=== PATIENT | female | born 1935 | race Caucasian/White ===

== ENCOUNTER → 2016-04-28 | Outpatient (CLI) | payer BC ==
[~2016-04-28] MED LIST: AMLO-110 PO; BIOTCAP2 PO; CARV6.252 PO; CHOL2000 PO; CLTP PO; GABA-112 PO; HYDR-3126 PO; IBAN150T7 PO; LEVO50TA6 PO; MULT-506 PO; NORT10CA PO; POLY335019 PO; PRD/1 PO; PRLSR20 PO; TRAM-10 PO
[2016-04-28 15:56] LABS: BASO % 0.4 %; BASO ABS # 0.04 K/uL (0-0.2); COMPLETE YES; EOS % 2.3 %; HEMATOCRIT 38.9 % (37-47); IG% 0.3 %; LYMPH % 11.5 %; LYMPH ABS # 1.19 K/uL (1.2-3.4); MEAN CELL VOLUME 90.7 fL (80-100); MEAN CORPUSCULAR HEMOGLOBIN 30.3 pg (25-34); MEAN CORPUSCULAR HGB CONC 33.4 g/dl (32-36); MEAN PLATELET VOLUME 10.8 fL (7.4-10.4); MONO % 5.2 %; NEUT % 80.3 %; PLATELET COUNT 391 K/uL (130-400); RED BLOOD COUNT 4.29 M/uL (4.2-5.4); WHITE BLOOD COUNT 10.32 K/uL (4.8-10.8)
[2016-04-28 17:53] LABS: BLOOD UREA NITROGEN 13 mg/dl (7-18); BUN/CREATININE RATIO 18.7 (10-20); CARBON DIOXIDE 30 mmol/L (21-32); CHLORIDE 98 mmol/L (98-107); CREATININE 0.72 mg/dl (0.60-1.20); GLUCOSE 150 mg/dl (70-99); POTASSIUM 3.9 mmol/L (3.5-5.1); SODIUM 137 mmol/L (136-145)
== END | disposition home or self-care (01) ==
LOC: C.LAB1850 14:43
PROVIDERS: ATTEND Internal Medicine
DX: E87.1 Hypo-osmolality and hyponatremia (principal); E03.9 Hypothyroidism, unspecified; R29.6 Repeated falls

== ENCOUNTER → 2016-10-03 | Outpatient (CLI) | payer BC ==
[2016-10-03 16:39] LABS: BASO % 0.8 %; BASO ABS # 0.08 K/uL (0-0.2); COMPLETE YES; EOS % 3.4 %; HEMATOCRIT 43.2 % (37-47); IG% 0.2 %; LYMPH % 15.2 %; LYMPH ABS # 1.46 K/uL (1.2-3.4); MEAN CORPUSCULAR HEMOGLOBIN 30.4 pg (25-34); MEAN CORPUSCULAR HGB CONC 33.8 g/dl (32-36); MEAN PLATELET VOLUME 11.5 fL (7.4-10.4); MONO % 5.8 %; NEUT % 74.6 %; PLATELET COUNT 316 K/uL (130-400)
[2016-10-03 17:04] LABS: ALT/SGPT 25 U/L (12-78); AST/SGOT 16 U/L (15-37); BLOOD UREA NITROGEN 13 mg/dl (7-18); CALCIUM 9.1 mg/dl (8.5-10.1); CARBON DIOXIDE 31 mmol/L (21-32); CHLORIDE 99 mmol/L (98-107); CREATININE 0.74 mg/dl (0.60-1.20); GLUCOSE 96 mg/dl (70-99); POTASSIUM 4.3 mmol/L (3.5-5.1); SODIUM 137 mmol/L (136-145)
[2016-10-03 17:23] LABS: ALKALINE PHOSPHATASE 72 U/L (45-117)
== END | disposition home or self-care (01) ==
LOC: C.LAB1850 15:25
PROVIDERS: ATTEND Internal Medicine
DX: L40.50 Arthropathic psoriasis, unspecified (principal); E55.9 Vitamin D deficiency, unspecified; E03.9 Hypothyroidism, unspecified

== ENCOUNTER → 2017-03-07 | Outpatient (CLI) | payer BC ==
[2017-03-07 17:10] LABS: BLOOD UREA NITROGEN 15 mg/dl (7-18); BUN/CREATININE RATIO 16.8 (10-20); CARBON DIOXIDE 33 mmol/L (21-32); CHLORIDE 100 mmol/L (98-107); CREATININE 0.87 mg/dl (0.60-1.20); GLUCOSE 109 mg/dl (70-99); MAGNESIUM 2.3 mg/dl (1.8-2.4); POTASSIUM 4.2 mmol/L (3.5-5.1); SODIUM 136 mmol/L (136-145)
== END | disposition home or self-care (01) ==
LOC: C.LAB1850 15:47
PROVIDERS: ATTEND Internal Medicine
DX: R25.2 Cramp and spasm (principal)

== ENCOUNTER 2017-04-20 22:29 | Observation (INO) | payer BC ==
[~2017-04-20] VITALS: Ht 152.4 cm; Wt 65.0 kg
--- NOTE | 2017-04-20 23:12 | EMERGENCY ROOM VISIT NOTE ---
History Report prepared by Macy: Donald Johnson Under the Supervision of: Dr. Castillo Sanderson M.D. First contact with patient: 23:02 Chief Complaint: CONFUSION Stated Complaint: DEHYDRATION/CONFUSED Nursing Triage Summary: Patient arrived ALS for evaluation of confusion. Patient was talking on the phone with one of her daughters and daughter noted patient to be having difficulty remembering things and seemed a bit confused. Daughter had family check on her and they gave her gatorade and salty chips. Patient has hx low sodium with similar symptoms. Patient also has hx vertigo and hypertension. Patient alert and oriented upon arrival to ED. History of Present Illness The patient is an 81 year old female with a history of hypertension and vertigo who presents to the Emergency Room via EMS with an episode of confusion this evening. Per the patient's daughters, the patient was called by one of her daughters, and the daughter noted that the patient was very disoriented and was mixing up words. The patient states that she was unable to remember common phone numbers, and she felt like she was losing her mind. Per the patient's daughters, the patient did not know who they were when they saw the patient prior to arrival this evening. The patient's episode of confusion lasted almost an hour, per the patient's daughters. The patient denies any vision difficulties , numbness in her arms or legs, cough, cold symptoms, headaches, rashes, abdominal pain, urinary symptoms, or recent falls. The patient was given Gatorade before coming here, but that was not noted to help. The patient states that she has a history of sodium issues. She notes no history of strokes of heart attacks. She is a non-smoker. Source of History: patient, family Onset: This evening Position: other (global - confusion) Quality: other (did not know common phone numbers) Timing: other (episode) Associated Symptoms: No headache, No cough (or cold symptoms), No abdominal pain, No urinary symptoms, No numbness Note: Associated symptoms: Denies vision difficulties. Review of Systems See HPI for pertinent positives & negatives. A total of 10 systems reviewed and were otherwise negative. Past Medical & Surgical Medical Problems: (1) Esophageal Reflux (2) Hypertension Nos (3) Hypothyroidism Nos (4) Lumbar Disc Displacement (5) Memory loss (6) Osteoporosis Nos (7) Rheumatoid Arthritis Surgical Problems: (1) History of back surgery (2) History of cholecystectomy Family History Cancer Social History Smoking Status: Never Smoker Alcohol Use: none Marital Status: Housing Status: lives alone Occupation Status: retired Current/Historical Medications Scheduled Aspirin (Aspirin 81), 81 MG PO DAILY B Complex W/ C (Super B With C), 1 CAP PO DAILY Biotin (Biotin 5000), 1 CAP PO QAM Calcium Carbonate-Vitamin D (Calcium 600+D), 1 TAB PO BID Carvedilol (Coreg), 6.25 MG PO BID Cholecalciferol (Vitamin D3), 1 CAP PO QAM Fiber (Fiber Select Gummies), PO package instruction Gabapentin (Neurontin), 100 MG PO BID Gabapentin (Neurontin), 2 TABS PO HS Ibandronate Sodium (Ibandronate Sodium), 150 MG PO MONTHLY Levothyroxine Sodium (Levothyroxine Sodium), 1 TAB PO QAM Multivitamin (Multivitamin), 1 TABLET PO QAM Nortriptyline Hcl (Pamelor), 10 MG PO HS Omeprazole (Prilosec), 20 MG PO BID Polyethylene Glycol 3350 (Miralax), 17 GM PO QAM Scheduled PRN Hydrochlorothiazide (Hydrochlorothiazide), 1 TAB PO DAILY PRN for swelling/wt gain Hydroxyzine Hcl (Atarax), 25 MG PO HS PRN for Itching Allergies Coded Allergies: Latex (Verified Allergy, Unknown, pt states got hives with disposable diapers, 04/21/17) states was told latex allergy Buspirone (Verified Adverse Reaction, Mild, DIZZINESS, NAUSEA, 04/21/17) Clarithromycin (Verified Adverse Reaction, Unknown, "GETS VERY SICK", ) Lisinopril (Verified Adverse Reaction, Unknown, Dizzy, 04/21/17) Physical Exam Vital Signs Date Time Temp Pulse Resp B/P (MAP) Pulse Ox O2 Delivery O2 Flow Rate FiO2 04/21/17 00:41 70 04/21/17 00:38 66 04/20/17 23:48 72 18 180/79 97 Room Air 04/20/17 22:53 75 04/20/17 22:40 99 Room Air 04/20/17 22:35 36.6 74 18 202/95 95 Room Air Physical Exam GENERAL: Patient is well appearing and in no acute distress. HEENT: No acute trauma, normocephalic atraumatic, mucous membranes moist, no nasal congestion, no scleral icterus. NECK: No stridor, no adenopathy, no meningismus, trachea is midline. LUNGS: No dyspnea. Clear to auscultation and equal bilaterally. No wheeze, no rhonchi. HEART: Regular rate and rhythm. No murmurs, rubs, gallops appreciated. ABDOMEN: Soft, nontender, bowel sounds positive, no masses appreciated, no peritonitis. BACK: No midline tenderness, no CVA tenderness EXTREMITIES: Normal motion all extremities, no cyanosis, no edema. NEUROLOGIC: Alert and oriented, no acute motor or sensory deficits, no focal weakness, cranial nerves grossly intact. SKIN: No rash, no jaundice, no diaphoresis. Medical Decision & Procedures ER Provider Diagnostic Interpretation: Radiology results and stated below per my review and radiologist interpretation: CT HEAD: Comparison is made to prior CT head on 06/10/2014. No acute intracranial abnormality identified. Increased chronic small vessel ischemic disease and cerebral volume loss. Artherosclerotic calcification in the intracranial vasculature. Radiologist: Craig Butler M.D. X ray results are stated below per my interpretation: Chest: 1 view: No infiltrate, no effusion, normal cardiac border. Similar to previous. Laboratory Results 04/20/17 23:00 Red Blood Count 4.27, Mean Corpuscular Volume 90.6, Mean Corpuscular Hemoglobin 30.0, Mean Corpuscular Hemoglobin Concent 33.1, Mean Platelet Volume 10.8, Neutrophils (%) (Auto) 68.3, Lymphocytes (%) (Auto) 17.0, Monocytes (%) (Auto) 8.8, Eosinophils (%) (Auto) 4.9, Basophils (%) (Auto) 0.7, Neutrophils # (Auto) 6.54, Lymphocytes # (Auto) 1.63, Monocytes # (Auto) 0.84, Eosinophils # (Auto) 0.47, Basophils # (Auto) 0.07 04/20/17 23:00 Test 04/20/17 23:00 04/20/17 23:25 White Blood Count 9.58 K/uL (4.8-10.8) Red Blood Count 4.27 M/uL (4.2-5.4) Hemoglobin 12.8 g/dL (12.0-16.0) Hematocrit 38.7 % (37-47) Mean Corpuscular Volume 90.6 fL (80-100) Mean Corpuscular Hemoglobin 30.0 pg (25-34) Mean Corpuscular Hemoglobin Concent 33.1 g/dl (32-36) Platelet Count 257 K/uL (130-400) Mean Platelet Volume 10.8 fL (7.4-10.4) Neutrophils (%) (Auto) 68.3 % Lymphocytes (%) (Auto) 17.0 % Monocytes (%) (Auto) 8.8 % Eosinophils (%) (Auto) 4.9 % Basophils (%) (Auto) 0.7 % Neutrophils # (Auto) 6.54 K/uL (1.4-6.5) Lymphocytes # (Auto) 1.63 K/uL (1.2-3.4) Monocytes # (Auto) 0.84 K/uL (0.11-0.59) Eosinophils # (Auto) 0.47 K/uL (0-0.5) Basophils # (Auto) 0.07 K/uL (0-0.2) RDW Standard Deviation 49.5 fL (36.4-46.3) RDW Coefficient of Variation 14.8 % (11.5-14.5) Immature Granulocyte % (Auto) 0.3 % Immature Granulocyte # (Auto) 0.03 K/uL (0.00-0.02) Prothrombin Time 11.0 SECONDS (9.0-12.0) Prothromb Time International Ratio 1.0 (0.9-1.1) Activated Partial Thromboplast Time 26.1 SECONDS (21.0-31.0) Partial Thromboplastin Ratio 1.0 Anion Gap 5.0 mmol/L (3-11) Est Creatinine Clear Calc Drug Dose 58.5 ml/min Estimated GFR () 96.1 Estimated GFR (Non- 82.9 BUN/Creatinine Ratio 16.2 (10-20) Calcium Level 7.6 mg/dl (8.5-10.1) Magnesium Level 2.0 mg/dl (1.8-2.4) Total Bilirubin 0.4 mg/dl (0.2-1) Direct Bilirubin < 0.1 mg/dl (0-0.2) Aspartate Amino Transf (AST/SGOT) 12 U/L (15-37) Alanine Aminotransferase (ALT/SGPT) 20 U/L (12-78) Alkaline Phosphatase 51 U/L (45-117) Troponin I < 0.015 ng/ml (0-0.045) Total Protein 6.7 gm/dl (6.4-8.2) Albumin 3.2 gm/dl (3.4-5.0) Thyroid Stimulating Hormone (TSH) 2.050 uIu/ml (0.300-4.500) Urine Color YELLOW Urine Appearance CLEAR (CLEAR) Urine pH 8.0 (4.5-7.5) Urine Specific [place] 1.009 (1.000-1.030) Urine Protein NEG (NEG) Urine Glucose (UA) NEG (NEG) Urine Ketones NEG (NEG) Urine Occult Blood NEG (NEG) Urine Nitrite NEG (NEG) Urine Bilirubin NEG (NEG) Urine Urobilinogen NEG (NEG) Urine Leukocyte Esterase TRACE (NEG) Urine WBC (Auto) 5-10 /hpf (0-5) Urine RBC (Auto) 0-4 /hpf (0-4) Urine Hyaline Casts (Auto) 0 /lpf (0-5) Urine Epithelial Cells (Auto) 10-20 /lpf (0-5) Urine Bacteria (Auto) NEG (NEG) Laboratory results as reviewed by me. ECG Indication: altered mental status Rate (beats per minute): 73 Rhythm: normal sinus Findings: no acute ischemic change, no ectopy, other (very poor baseline) ED Course 2305: The patient was evaluated in room A9B. A complete history and physical exam was performed. 0012: Upon reevaluation, the patient is resting comfortably. Discussed results and treatment plan with the patient. she verbalized understanding and agreement with the treatment plan. The patient will be evaluated for further management. 0031: I discussed the patient with Dr. Watson [place] [facility] [place] he will evaluate the patient for further treatment. Medical Decision Differential: Toxicological, Infectious, Stroke, SAH, Trauma, Electrolyte Abnormality, Hypoglycemia, Alcohol Intoxication, Drug Intoxication, Cardiac Abnormality, Sepsis, Meningitis/Encephalitis, Trauma, Excited Delirium, Serotonin Syndrome, Psychiatric, amongst other pathologies entertained. 81 yr old female with transient hour long episode of altered mental status with inability to remember locations/phone numbers and difficulty speaking with confusion. No neuro deficits and resolved after family had her drinking Gatorade. Completely benign exam now and in no distress. Moderate htn gradually improving. Labs, ekg, cxr, ct head negative. Will bring in as unclear etiology and may have been TIA. Head Trauma GCS Score: 15 Medication Reconcilliation Current Medication List: was personally reviewed by me Blood Pressure Screening Patient's blood pressure: Elevated blood pressure Monitored by hospitalist. Consults Time Called: 27 Consulting Physician: Dr. Walter TORRES director foundation Returned Call: [phone] I discussed the patient with Dr. Walter TORRES director foundation - he will evaluate the patient for further treatment. Impression Primary Impression: Altered mental status Scribe Attestation The scribe's documentation has been prepared under my direction and personally reviewed by me in its entirety. I confirm that the note above accurately reflects all work, treatment, procedures, and medical decision making performed by me. Departure Information Dispostion Being Evaluated By Hospitalist Referrals Hiram Mcfarland M.D. (PCP) Patient Instructions My [facility]
[2017-04-20 23:18] LABS: BASO % 0.7 %; BASO ABS # 0.07 K/uL (0-0.2); EOS % 4.9 %; EOS ABS # 0.47 K/uL (0-0.5); HEMATOCRIT 38.7 % (37-47); HEMOGLOBIN 12.8 g/dL (12.0-16.0); IG# 0.03 K/uL (0.00-0.02); LYMPH ABS # 1.63 K/uL (1.2-3.4); MEAN CELL VOLUME 90.6 fL (80-100); MEAN CORPUSCULAR HGB CONC 33.1 g/dl (32-36); MEAN PLATELET VOLUME 10.8 fL (7.4-10.4); MONO % 8.8 %; MONO ABS # 0.84 K/uL (0.11-0.59); NEUT % 68.3 %; NEUT ABS # 6.54 K/uL (1.4-6.5); PLATELET COUNT 257 K/uL (130-400); RED CELL DISTRIBUTION WIDTH CV 14.8 % (11.5-14.5); RED CELL DISTRIBUTION WIDTH SD 49.5 fL (36.4-46.3); WHITE BLOOD COUNT 9.58 K/uL (4.8-10.8)
[2017-04-20 23:40] LABS: ALBUMIN 3.2 gm/dl (3.4-5.0); ALT/SGPT 20 U/L (12-78); AST/SGOT 12 U/L (15-37); BLOOD UREA NITROGEN 10 mg/dl (7-18); CALCIUM 7.6 mg/dl (8.5-10.1); CARBON DIOXIDE 28 mmol/L (21-32); CREATININE 0.63 mg/dl (0.60-1.20); GLUCOSE 116 mg/dl (70-99); POTASSIUM 3.9 mmol/L (3.5-5.1); SODIUM 135 mmol/L (136-145)
[2017-04-20 23:44] LABS: PTT PATIENT 26.1 SECONDS (21.0-31.0)
[2017-04-20 23:45] LABS: ALKALINE PHOSPHATASE 51 U/L (45-117); TOTAL PROTEIN 6.7 gm/dl (6.4-8.2)
[2017-04-21] VITALS (8 sets, daily range): BP systolic 146–185; BP diastolic 73–79; PULSE 71–81; TEMP 36.6–36.7; O2SAT 92–96; Ht 152.4 cm; Wt 65.0 kg
--- NOTE | 2017-04-21 00:29 | History and Physical ---
History & Physical Date & Time of Service: Apr 21, 2017 at 00:22 Chief Complaint: Dehydration/Confused Primary Care Physician: Hiram Mcfarland M.D. History of Present Illness Source: patient, family 81 y/o F Hx RA, HTN, hypothyroid, lumbar stenosis, GERD. The pt presents following an acute episode of confusion which lasted for over one hour. She had spoken to her daughter on the phone and was said to exhibit difficulty forming sentences, memory impairment and disorientation. There was no reported slurring of speech. She denies any acute weakness, visual changes or loss of balance. Her symptoms have resolved at the time of evaluation. Past Medical/Surgical History 1) Rheumatoid arthritis 2) Hypothyroidism 3) HTN 4) GERD 5) Lumbar stenosis 6) Pubic ramus fracture 7) Altered mental status associated with hyponatremia Surgical: Back surgery Cholecystectomy Family History Cancer Social History Smoking Status: Never Smoker Marital Status: Housing status: lives alone Occupational Status: retired Immunizations History of Influenza Vaccine: Yes History of Tetanus Vaccine?: Yes History of Pneumococcal: Yes History of Hepatitis B Vaccine: No Multi-Drug Resistant Organisms History of MDRO: No Allergies Coded Allergies: Latex (Verified Allergy, Unknown, pt states got hives with disposable diapers, 04/21/17) states was told latex allergy Buspirone (Verified Adverse Reaction, Mild, DIZZINESS, NAUSEA, 04/21/17) Clarithromycin (Verified Adverse Reaction, Unknown, "GETS VERY SICK", ) Lisinopril (Verified Adverse Reaction, Unknown, Dizzy, 04/21/17) Home Medications Scheduled Aspirin (Aspirin 81), 81 MG PO DAILY B Complex W/ C (Super B With C), 1 CAP PO DAILY Biotin (Biotin 5000), 1 CAP PO QAM Calcium Carbonate-Vitamin D (Calcium 600+D), 1 TAB PO BID Carvedilol (Coreg), 6.25 MG PO BID Cholecalciferol (Vitamin D3), 1 CAP PO QAM Fiber (Fiber Select Gummies), PO package instruction Gabapentin (Neurontin), 100 MG PO BID Gabapentin (Neurontin), 2 TABS PO HS Ibandronate Sodium (Ibandronate Sodium), 150 MG PO MONTHLY Levothyroxine Sodium (Levothyroxine Sodium), 1 TAB PO QAM Multivitamin (Multivitamin), 1 TABLET PO QAM Nortriptyline Hcl (Pamelor), 10 MG PO HS Omeprazole (Prilosec), 20 MG PO BID Polyethylene Glycol 3350 (Miralax), 17 GM PO QAM Scheduled PRN Hydrochlorothiazide (Hydrochlorothiazide), 1 TAB PO DAILY PRN for swelling/wt gain Hydroxyzine Hcl (Atarax), 25 MG PO HS PRN for Itching Review of Systems Constitutional: No fever, No chills, No sweats Eyes: No worsening of vision ENT: No hearing loss, No nasal symptoms Respiratory: No cough, No wheezing Cardiovascular: No chest pain, No orthopnea, No PND Abdomen: No pain, No nausea, No vomiting Musculoskeletal: + joint pain (chronic back pain) Genitourinary - Female: No dysuria, No urinary frequency, No urinary urgency Neurologic: + memory loss, + problem reported (acute disorientation) Psychiatric: No depression symptoms Endocrine: No fatigue Hematologic / Lymphatic: No abnormal bleeding/bruising Integumentary: No rash Allergic / Immunologic: No environmental allergies Physical Exam Vital Signs Date Time Temp Pulse Resp B/P (MAP) Pulse Ox O2 Delivery O2 Flow Rate FiO2 04/20/17 23:48 72 18 180/79 97 Room Air 04/20/17 22:53 75 04/20/17 22:40 99 Room Air 04/20/17 22:35 36.6 74 18 202/95 95 Room Air General Appearance: WD/WN, no apparent distress Head: normocephalic Eyes: normal inspection ENT: normal ENT inspection, pharynx normal Neck: supple, no JVD Respiratory/Chest: chest non-tender, lungs clear, normal breath sounds Cardiovascular: regular rate, rhythm, no edema, no gallop Abdomen/GI: normal bowel sounds, non tender, soft Back: normal inspection, no CVA tenderness Extremities/Musculoskelatal: normal inspection, no calf tenderness 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, no motor/sensory deficits, alert, oriented x 3 Skin: normal color, warm/dry Diagnostics Laboratory Results Results Past 24 Hours Test 04/20/17 23:00 04/20/17 23:25 Range/Units White Blood Count 9.58 4.8-10.8 K/uL Red Blood Count 4.27 4.2-5.4 M/uL Hemoglobin 12.8 12.0-16.0 g/dL Hematocrit 38.7 37-47 % Mean Corpuscular Volume 90.6 80-100 fL Mean Corpuscular Hemoglobin 30.0 25-34 pg Mean Corpuscular Hemoglobin Concent 33.1 32-36 g/dl Platelet Count 257 130-400 K/uL Mean Platelet Volume 10.8 7.4-10.4 fL Neutrophils (%) (Auto) 68.3 % Lymphocytes (%) (Auto) 17.0 % Monocytes (%) (Auto) 8.8 % Eosinophils (%) (Auto) 4.9 % Basophils (%) (Auto) 0.7 % Neutrophils # (Auto) 6.54 1.4-6.5 K/uL Lymphocytes # (Auto) 1.63 1.2-3.4 K/uL Monocytes # (Auto) 0.84 0.11-0.59 K/uL Eosinophils # (Auto) 0.47 0-0.5 K/uL Basophils # (Auto) 0.07 0-0.2 K/uL RDW Standard Deviation 49.5 36.4-46.3 fL RDW Coefficient of Variation 14.8 11.5-14.5 % Immature Granulocyte % (Auto) 0.3 % Immature Granulocyte # (Auto) 0.03 0.00-0.02 K/uL Prothrombin Time 11.0 9.0-12.0 SECONDS Prothromb Time International Ratio 1.0 0.9-1.1 Activated Partial Thromboplast Time 26.1 21.0-31.0 SECONDS Partial Thromboplastin Ratio 1.0 Sodium Level 135 136-145 mmol/L Potassium Level 3.9 3.5-5.1 mmol/L Chloride Level 102 98-107 mmol/L Carbon Dioxide Level 28 21-32 mmol/L Anion Gap 5.0 3-11 mmol/L Blood Urea Nitrogen 10 7-18 mg/dl Creatinine 0.63 0.60-1.20 mg/dl Est Creatinine Clear Calc Drug Dose 58.5 ml/min Estimated GFR () 96.1 Estimated GFR (Non- 82.9 BUN/Creatinine Ratio 16.2 10-20 Random Glucose 116 70-99 mg/dl Calcium Level 7.6 8.5-10.1 mg/dl Magnesium Level 2.0 1.8-2.4 mg/dl Total Bilirubin 0.4 0.2-1 mg/dl Direct Bilirubin < 0.1 0-0.2 mg/dl Aspartate Amino Transf (AST/SGOT) 12 15-37 U/L Alanine Aminotransferase (ALT/SGPT) 20 12-78 U/L Alkaline Phosphatase 51 45-117 U/L Troponin I < 0.015 0-0.045 ng/ml Total Protein 6.7 6.4-8.2 gm/dl Albumin 3.2 3.4-5.0 gm/dl Urine Color YELLOW Urine Appearance CLEAR CLEAR Urine pH 8.0 4.5-7.5 Urine Specific [place] 1.009 1.000-1.030 Urine Protein NEG NEG Urine Glucose (UA) NEG NEG Urine Ketones NEG NEG Urine Occult Blood NEG NEG Urine Nitrite NEG NEG Urine Bilirubin NEG NEG Urine Urobilinogen NEG NEG Urine Leukocyte Esterase TRACE NEG Urine WBC (Auto) 5-10 0-5 /hpf Urine RBC (Auto) 0-4 0-4 /hpf Urine Hyaline Casts (Auto) 0 0-5 /lpf Urine Epithelial Cells (Auto) 10-20 0-5 /lpf Urine Bacteria (Auto) NEG NEG Impression Assessment and Plan 81 y/o F Hx RA, HTN, hypothyroid, lumbar stenosis, GERD. The pt presents following an acute episode of confusion which lasted for over one hour. She had spoken to her daughter on the phone and was said to exhibit difficulty forming sentences, memory impairment and disorientation. There was no reported slurring of speech. She denies any acute weakness, visual changes or loss of balance. Her symptoms have resolved at the time of evaluation. 1) Acute confusion and memory loss - this would be a somewhat unusual presentation for a TIA. She will be monitored on telemetry with neurochecks. Will will obtain an MRI/MRA and request input fro neurology. She will be placed on ASA and a Satin. We will hold HCTZ at present. 2) RA - controlled with 2mg prednisone daily which we will continue. 3) Hypothyroidism - Cont Synthroid - check TSH 4) GERD - cont PPi Full code - Heparin prophylaxis Total time for this admit including review of labs,meds, imaging - discussion with pt, family, ER attending - 35 min Level of Care Telemetry Resuscitation Status FULL RESUSCITATION VTE Prophylaxis Given or contraindicated: Unfractionated heparin SQ
[2017-04-21] MEDS ORDERED: hydrOXYzine HCL 25 MG TAB PO PRN (00:30)
[2017-04-21] MEDS ORDERED: TRAMADOL HCL 50 MG TAB PO PRN (00:30)
[2017-04-21] MEDS ORDERED: ASPI-435 PO (00:31)
[2017-04-21] MEDS ORDERED: HYDR12.55 PO (00:33)
[2017-04-21] MEDS ORDERED: CALC-342 PO (00:35)
[2017-04-21] MEDS ORDERED: B COCAP10 PO (00:36)
[2017-04-21] MEDS ORDERED: FIBE1CHW PO (00:37)
[2017-04-21] MEDS ORDERED: ACETAMINOPHEN 325 MG TAB PO PRN (01:00)
[2017-04-21] MEDS ORDERED: POLYETHYLENE (MIRALAX) 17 GM PACK PO PRN (01:00)
[2017-04-21] MEDS ORDERED: SODIUM CHLORIDE 0.9% 1000ML 1,000 ML IV SCH (01:00)
[2017-04-21] MEDS ORDERED: PHARMACIST DISCHARGE MED REC CONSULT PRN (01:00)
[2017-04-21] MEDS ORDERED: MAGNESIUM HYDROXIDE SUSP 30 ML UDC PO PRN (01:00)
[2017-04-21] MEDS ORDERED: ONDANSETRON INJ 2 MG/ML 2 ML VIAL IV PRN (01:00)
[2017-04-21] MEDS ORDERED: ALUMINUM/MAGNESIUM/SIMETH (MAALOX MAX) 30 ML UDC PO PRN (01:00)
[2017-04-21] MEDS ORDERED: IV FLUIDS COMPLETED PRN (01:00)
[2017-04-21] MEDS ORDERED: GADAVIST IV PRN (03:40)
[2017-04-21] MEDS ORDERED: LEVOTHYROXINE 50 MCG TAB PO SCH (06:00)
[2017-04-21] MEDS: HEPARIN SOD 5000 UNIT/0.5 ML CARP SQ SCH ×2 (06:00→14:00)
[2017-04-21 06:30] LABS: HEMOGLOBIN A1C 5.9 % (4.5-5.6)
--- NOTE | 2017-04-21 06:41 | DIAGNOSTIC IMAGING REPORT ---
HEAD WITHOUT CONTRAST (CT) CLINICAL HISTORY: 81 years-old Female with AMS. Acute altered mental status TECHNIQUE: Multiple axial CT images of the head were obtained without contrast. A dose lowering technique was utilized adhering to the principles of ALARA. CT DOSE: 537.48 mGy.cm COMPARISON: None available. FINDINGS: No acute intracranial hemorrhage, midline shift, intracranial mass, hydrocephalus, territorial ischemia or abnormal extra-axial collection. Moderate cerebral atrophy with ex vacuo ventriculomegaly. Moderate chronic microvascular ischemic changes. The calvarium is intact. The paranasal sinuses, mastoid air cells, and middle ear cavities are clear. IMPRESSION: No acute intracranial abnormality. The above report was generated using voice recognition software. It may contain grammatical, syntax or spelling errors. Electronically signed by: Hardeep Martínez M.D. 04/21/2017 6:40 AM Dictated Date/Time: 04/21/2017 6:38 AM
--- NOTE | 2017-04-21 06:43 | DIAGNOSTIC IMAGING REPORT ---
CHEST ONE VIEW PORTABLE CLINICAL HISTORY: 81 years-old Female presenting with AMS. TECHNIQUE: Portable upright AP view of the chest was obtained. COMPARISON: 11/16/2014. FINDINGS: Atherosclerosis of the aortic arch. Tortuosity of the descending thoracic aorta. Cardiac silhouette normal in size. Mildly prominent lung markings, unchanged. No focal infiltrate. No large effusion or pneumothorax. Osseous structures normal. Cholecystectomy clips may be present. IMPRESSION: 1. Prominent lung markings may imply underlying chronic lung disease. These findings are unchanged from prior exam. No superimposed focal infiltrate to suggest pneumonia. Electronically signed by: Isidro Merritt M.D. 04/21/2017 6:42 AM Dictated Date/Time: 04/21/2017 6:40 AM
--- NOTE | 2017-04-21 06:52 | DIAGNOSTIC IMAGING REPORT ---
MRA HEAD WITHOUT CONTRAST HISTORY: 81 years-old Female Stroke - Attention to [place] [facility] [place] acute strokelike symptoms COMPARISON: MRI brain and CT head of same day TECHNIQUE: MRA of the head was obtained without contrast utilizing 3-D [id number] sequencing with MIP reformats. FINDINGS: The imaged bilateral internal carotid, middle and anterior cerebral arteries are widely patent and within normal limits. The vertebral arteries also appear to be within normal limits and are patent. The bilateral posterior cerebral arteries are widely patent and within normal limits. No aneurysm, high-grade stenosis, dissection or proximal branch occlusion identified. Moderate cerebral atrophy with ex vacuo ventriculomegaly noted. IMPRESSION: Unremarkable MRA of the head without evidence of aneurysm, high-grade stenosis or proximal branch occlusion. The above report was generated using voice recognition software. It may contain grammatical, syntax or spelling errors. Electronically signed by: Hardeep Martínez M.D. 04/21/2017 6:51 AM Dictated Date/Time: 04/21/2017 6:47 AM
--- NOTE | 2017-04-21 06:52 | DIAGNOSTIC IMAGING REPORT ---
BRAIN WITHOUT CONTRAST HISTORY: Mental status change Stroke TECHNIQUE: Multiplanar multisequence MRI of the brain was performed without the use of contrast. COMPARISON STUDY: None. FINDINGS: Diffusion-weighted images show no evidence for an acute ischemic event. Considerable chronic small vessel change. Mild ventricular prominence in relation to the atrophy present raising the possibility of a component of normal pressure hydrocephalus. Sella and parasellar regions are unremarkable. The internal auditory canals within limitations of nonenhanced scan appear unremarkable. Semicircular canals appear symmetric. Globes are symmetric. IMPRESSION: 1. Mild atrophy. 2. Mild ventricular prominence somewhat out of proportion to the atrophy present raising the possibility of developing normal pressure hydrocephalus. 3. Moderate chronic small vessel change throughout both cerebral hemispheres. 4. No acute vascular insult. The above report was generated using voice recognition software. It may contain grammatical, syntax or spelling errors. Electronically signed by: Samy Hamilton M.D. 04/21/2017 6:51 AM Dictated Date/Time: 04/21/2017 6:47 AM
--- NOTE | 2017-04-21 07:24 | DIAGNOSTIC IMAGING REPORT ---
MRA NECK COMBO CLINICAL HISTORY: 81 years-old Female presenting with lightheadedness and vestibular issues in the left ear, speech problems, confusion tonight, history of fall on April 15, history of pelvic fractures. TECHNIQUE: MR angiography of the neck was performed before and after the administration of intravenous contrast. 3-D volumetric and/or maximum intensity projection (MIP) images were subsequently reconstructed for review. IV contrast: 6.8 mL of Gadavist. Stenosis measurements were based on NASCET-like criteria. COMPARISON: Carotid Doppler ultrasound from 2013. FINDINGS: Two-vessel aortic arch with a common trunk for the innominate and left common carotid arteries. Patent origins of the branch vessels. Bilateral common and internal carotid arteries patent. Minimal irregularity related to atherosclerotic plaque at the right carotid bulb without significant narrowing. Atherosclerotic plaque also results in mild narrowing (less than 50% stenosis) of the cavernous segment of the right internal carotid artery. Remainder of the visualized portion of the intracranial vasculature within normal limits. Left dominant vertebral artery. Origins and courses of the vertebral arteries are patent bilaterally. No evidence of a focal vessel occlusion, significant stenosis, or dissection. Venous structures patent on delayed imaging. IMPRESSION: 1. Atherosclerosis of the right carotid bulb without significant narrowing. 2. No evidence of a focal vessel occlusion, significant stenosis, or dissection. Electronically signed by: Isidro Merritt M.D. 04/21/2017 7:23 AM Dictated Date/Time: 04/21/2017 6:35 AM
[2017-04-21] MEDS ORDERED: PNEUMOCOCCAL ADMINISTRATION CHARGE ONE (08:00)
[2017-04-21] MEDS ORDERED: PNEUMOCOCCAL POLYSACCHARIDES 25 MCG/0.5 ML VIAL/SYR IM. ONE (08:00)
[2017-04-21] MEDS ORDERED: AMLODIPINE BESYLATE 5 MG TAB PO SCH (09:00)
[2017-04-21] MEDS ORDERED: CARVEDILOL 6.25 MG TAB PO SCH (09:00)
[2017-04-21] MEDS ORDERED: GABAPENTIN 100 MG CAP PO SCH ×2 (09:00→21:00)
[2017-04-21] MEDS ORDERED: PANTOprazole SOD 40 MG TAB PO SCH (09:00)
--- NOTE | 2017-04-21 10:38 | EEG Procedure Note ---
EEG Procedure Note Date of Service Apr 21, 2017. Start / End Times Start Time: 10:05am End Time: 10:25am Referring Physician Victoria Lozano History 81 year old female with acute encephalopathy and speech changes. EEG for further eval of possible seizure etiology. Home Medication List Scheduled Aspirin (Aspirin 81), 81 MG PO DAILY B Complex W/ C (Super B With C), 1 CAP PO DAILY Biotin (Biotin 5000), 1 CAP PO QAM Calcium Carbonate-Vitamin D (Calcium 600+D), 1 TAB PO BID Carvedilol (Coreg), 6.25 MG PO BID Cholecalciferol (Vitamin D3), 1 CAP PO QAM Fiber (Fiber Select Gummies), PO package instruction Gabapentin (Neurontin), 100 MG PO BID Gabapentin (Neurontin), 2 TABS PO HS Ibandronate Sodium (Ibandronate Sodium), 150 MG PO MONTHLY Levothyroxine Sodium (Levothyroxine Sodium), 1 TAB PO QAM Multivitamin (Multivitamin), 1 TABLET PO QAM Nortriptyline Hcl (Pamelor), 10 MG PO HS Omeprazole (Prilosec), 20 MG PO BID Polyethylene Glycol 3350 (Miralax), 17 GM PO QAM Scheduled PRN Hydrochlorothiazide (Hydrochlorothiazide), 1 TAB PO DAILY PRN for swelling/wt gain Inpatient Medication List Current Inpatient Medications Medications (Trade) Dose Ordered Sig/Carlos Route Start Time Stop Time Status Last Admin Dose Admin Amlodipine Besylate (Norvasc Tab) 5 mg QAM PO 04/21/17 09:00 05/21/17 08:59 04/21/17 07:51 5 MG Carvedilol (Coreg Tab) 6.25 mg BID PO 04/21/17 09:00 05/21/17 08:59 04/21/17 07:52 6.25 MG Gabapentin (Neurontin Cap) 200 mg HS PO 04/21/17 21:00 05/21/17 20:59 Gabapentin (Neurontin Cap) 100 mg BID PO 04/21/17 09:00 05/21/17 08:59 04/21/17 07:51 100 MG Hydroxyzine HCl (Vistaril Tab) 25 mg HS PRN PO 04/21/17 00:30 05/21/17 00:29 Levothyroxine Sodium (Synthroid Tab) 50 mcg DAILYBB PO 04/21/17 06:00 05/21/17 05:59 04/21/17 06:07 50 MCG Nortriptyline HCl (Pamelor Cap) 10 mg HS PO 04/21/17 21:00 05/21/17 20:59 Prednisone (PredniSONE TAB) 2 mg QAM PO 04/21/17 09:00 05/21/17 08:59 04/21/17 07:52 2 MG Tramadol HCl (Ultram Tab) 50 mg Q4H PRN PO 04/21/17 00:30 05/21/17 00:29 Pantoprazole Sodium (Protonix Tab) 40 mg BID PO 04/21/17 09:00 05/21/17 08:59 04/21/17 07:52 40 MG Miscellaneous Information (Pharmacist Discharge Med Rec Consult) 1 ea UD PRN N/A 04/21/17 01:00 05/21/17 00:59 Heparin Sodium (Porcine) (Heparin Sq 5000 Unit/0.5ml) 5,000 unit Q8 SQ 04/21/17 06:00 05/21/17 05:59 Acetaminophen (Tylenol Tab) 650 mg Q4H PRN PO 04/21/17 01:00 05/21/17 00:59 Al Hydrox/Mg Hydrox/Simethicone (Maalox Max Susp) 15 ml Q4H PRN PO 04/21/17 01:00 05/21/17 00:59 Magnesium Hydroxide (Milk Of Magnesia Susp) 30 ml Q12H PRN PO 04/21/17 01:00 05/21/17 00:59 Ondansetron HCl (Zofran Inj) 4 mg Q6H PRN IV 04/21/17 01:00 05/21/17 00:59 Polyethylene (Miralax Powder Packet) 17 gm DAILY PRN PO 04/21/17 01:00 05/21/17 00:59 Sodium Chloride 1,000 ml @ 80 mls/hr [id number] IV 04/21/17 01:00 04/21/17 13:29 04/21/17 05:53 80 MLS/HR Miscellaneous (Iv Fluids Completed) 1 ea PRN PRN N/A 04/21/17 01:00 04/21/18 00:59 Gadobutrol (Gadavist) 6.8 mmol UD PRN IV 04/21/17 03:40 04/25/17 03:39 Description This is a 21 electrode EEG with a single channel dedicated to limited EKG. The electrodes were placed in accordance with the International 10-20 system. At the start of the recording the patient was in an awake state. The background was well organized and composed of mixed alpha and beta frequencies. There was mild continuous left hemispheric slowing, maximal over the left temporal area. There was a well formed symmetric moderate amplitude posterior dominant rhythm of 8-9Hz that was reactive to eye opening and closure. Hyperventilation and Photic stimulation were not done. There was no state changes or sleep transients. Interpretation This is an abnormal routine EEG secondary to mild left temporal slowing. There was no electrographic seizures or epileptiform discharges Clinical Correlation This EEG indicates a functional or structural cerebral dysfunction in the left hemisphere
--- NOTE | 2017-04-21 11:25 | Neurology Consultation ---
Neurology Consultation Date of Consultation: Apr 21, 2017. Attending Physician: Joe Galvan MD Primary Care Physician: Hiram Mcfarland M.D. Reason for Consultation: Consultation for transient altered mental status History of Present Illness Source: patient, hospital records This is a 81-year-old female who presents for acute change in mental status. By description she was having trouble getting her words out and appeared to be confused for about an hour. Patient remembers not being able to get words out and having trouble remembering things that she should've known. She is not sure how long it lasted. She reports having 2 previous episodes in the last 3 years it appeared to be similar with trouble getting her words out and confusion. She denies any focal numbness or weakness with any of these episodes. No abnormal headaches. No visual changes. No changes with her walking or gait. Denied any dizziness in association. No shortness of breath or chest pain or heart palpitations. She does report frequent lightheadedness and vertigo episodes when turning her head especially to the left. She reports that she's had workup and physical therapy for this in the past. In addition the patient does report occasional falls. This does not appear to be new. She walks with the assistance of a walker. Overall the patient reports that she is back at her neurological baseline this morning. MRI of the brain report and images were reviewed by myself. Overall noted some age-related changes of mild to moderate T2 hyperintensities in the subcortical white matter consistent with likely small vessel ischemic changes and mild general atrophy. Radiology brought up concerns for possible NPH, but I was not highly concerned about this per my review of imaging. MRA of the head and neck was unremarkable Labs are reviewed and included an unremarkable TSH Past Medical/Surgical History Medical Problems: (1) Altered mental status Status: Acute (2) Chronic lumbar radiculopathy Status: Acute (3) Fall in home Status: Acute (4) Fracture of left pelvis Status: Acute (5) Weakness of right lower extremity Status: Acute Past medical history severe for rheumatoid arthritis, hypertension, hypothyroid , lumbar stenosis, GERD History of pelvic fracture with left leg weakness Family History Family history of cancer. Patient denies any family history of seizures or stroke Social History Patient reports that she is independent in her activities of daily living. Walks with the assistance of a walker. Occasional falls. She no longer drives. No tobacco use. Smoking Status: Never smoker Marital Status: Housing Status: lives alone Occupation Status: retired Allergies Coded Allergies: Latex (Verified Allergy, Unknown, pt states got hives with disposable diapers, 04/21/17) states was told latex allergy Buspirone (Verified Adverse Reaction, Mild, DIZZINESS, NAUSEA, 04/21/17) Clarithromycin (Verified Adverse Reaction, Unknown, "GETS VERY SICK", ) Lisinopril (Verified Adverse Reaction, Unknown, Dizzy, 04/21/17) Current Inpatient Medications Current Inpatient Medications Medications (Trade) Dose Ordered Sig/Carlos Route Start Time Stop Time Status Last Admin Dose Admin Amlodipine Besylate (Norvasc Tab) 5 mg QAM PO 04/21/17 09:00 05/21/17 08:59 04/21/17 07:51 5 MG Carvedilol (Coreg Tab) 6.25 mg BID PO 04/21/17 09:00 05/21/17 08:59 04/21/17 07:52 6.25 MG Gabapentin (Neurontin Cap) 200 mg HS PO 04/21/17 21:00 05/21/17 20:59 Gabapentin (Neurontin Cap) 100 mg BID PO 04/21/17 09:00 05/21/17 08:59 04/21/17 07:51 100 MG Hydroxyzine HCl (Vistaril Tab) 25 mg HS PRN PO 04/21/17 00:30 05/21/17 00:29 Levothyroxine Sodium (Synthroid Tab) 50 mcg DAILYBB PO 04/21/17 06:00 05/21/17 05:59 04/21/17 06:07 50 MCG Nortriptyline HCl (Pamelor Cap) 10 mg HS PO 04/21/17 21:00 05/21/17 20:59 Prednisone (PredniSONE TAB) 2 mg QAM PO 04/21/17 09:00 05/21/17 08:59 04/21/17 07:52 2 MG Tramadol HCl (Ultram Tab) 50 mg Q4H PRN PO 04/21/17 00:30 05/21/17 00:29 Pantoprazole Sodium (Protonix Tab) 40 mg BID PO 04/21/17 09:00 05/21/17 08:59 04/21/17 07:52 40 MG Miscellaneous Information (Pharmacist Discharge Med Rec Consult) 1 ea UD PRN N/A 04/21/17 01:00 05/21/17 00:59 Heparin Sodium (Porcine) (Heparin Sq 5000 Unit/0.5ml) 5,000 unit Q8 SQ 04/21/17 06:00 05/21/17 05:59 Acetaminophen (Tylenol Tab) 650 mg Q4H PRN PO 04/21/17 01:00 05/21/17 00:59 Al Hydrox/Mg Hydrox/Simethicone (Maalox Max Susp) 15 ml Q4H PRN PO 04/21/17 01:00 05/21/17 00:59 Magnesium Hydroxide (Milk Of Magnesia Susp) 30 ml Q12H PRN PO 04/21/17 01:00 05/21/17 00:59 Ondansetron HCl (Zofran Inj) 4 mg Q6H PRN IV 04/21/17 01:00 05/21/17 00:59 Polyethylene (Miralax Powder Packet) 17 gm DAILY PRN PO 04/21/17 01:00 05/21/17 00:59 Sodium Chloride 1,000 ml @ 80 mls/hr [id number] IV 04/21/17 01:00 04/21/17 13:29 04/21/17 05:53 80 MLS/HR Miscellaneous (Iv Fluids Completed) 1 ea PRN PRN N/A 04/21/17 01:00 04/21/18 00:59 Gadobutrol (Gadavist) 6.8 mmol UD PRN IV 04/21/17 03:40 04/25/17 03:39 Review of Systems Except for dizziness symptoms, complete review systems otherwise negative except for the above noted in history of present illness Physical Exam Vital Signs (Past 24 Hrs): Date Time Temp Pulse Resp B/P (MAP) Pulse Ox O2 Delivery O2 Flow Rate FiO2 04/21/17 08:00 96 Room Air 04/21/17 07:33 36.7 81 20 170/73 (105) 96 Room Air 04/21/17 04:00 36.6 71 185/78 (113) 95 Room Air 04/21/17 04:00 95 Room Air 04/21/17 02:13 75 20 160/95 95 Room Air 04/21/17 01:34 Room Air 04/21/17 01:32 84 20 173/83 96 Room Air 04/21/17 00:41 70 04/21/17 00:38 66 04/20/17 23:48 72 18 180/79 97 Room Air 04/20/17 22:53 75 04/20/17 22:40 99 Room Air 04/20/17 22:35 36.6 74 18 202/95 95 Room Air Gen.: Patient is alert and sitting in bed, in no acute distress. HEENT: Normocephalic /atraumatic, no scleral icterus Heart: Regular rate and rhythm Extremities: No gross deformities or rashes noted Neurological examination: Mental status: Patient is alert and oriented x3. Attention and concentration normal for the situation. Remote and recent memory intact. Speech is fluent without any dysarthria or aphasia noted Cranial nerve: Funduscopic examination was unremarkable. No papilledema. Pupils equally round and reactive to light. Extraocular muscles intact without nystagmus. No facial asymmetry noted. Facial sensation intact. Tongue is midline. Good palatal elevation. Good shoulder shrug bilaterally. Hearing grossly intact to voice. Strength: 5/5 both proximal and distally in all extremities with the exception of 4/5 in left hip flexion (patient reports left leg weakness ever since pelvic fracture). There is no arm drift. Tone is normal. Sensation: Grossly intact to light touch in all extremities. Deep tendon reflexes: +1 in bilateral biceps, brachioradialis and patellar. Toes were downgoing to plantar stimulation Coordination: Patient had good finger to nose without dysmetria Station within the bed was normal Laboratory Results Past 24 Hours: 04/20/17 23:00 Red Blood Count 4.27, Mean Corpuscular Volume 90.6, Mean Corpuscular Hemoglobin 30.0, Mean Corpuscular Hemoglobin Concent 33.1, Mean Platelet Volume 10.8, Neutrophils (%) (Auto) 68.3, Lymphocytes (%) (Auto) 17.0, Monocytes (%) (Auto) 8.8, Eosinophils (%) (Auto) 4.9, Basophils (%) (Auto) 0.7, Neutrophils # (Auto) 6.54, Lymphocytes # (Auto) 1.63, Monocytes # (Auto) 0.84, Eosinophils # (Auto) 0.47, Basophils # (Auto) 0.07 04/20/17 23:00 Test 04/20/17 23:00 04/20/17 23:25 White Blood Count 9.58 K/uL (4.8-10.8) Red Blood Count 4.27 M/uL (4.2-5.4) Hemoglobin 12.8 g/dL (12.0-16.0) Hematocrit 38.7 % (37-47) Mean Corpuscular Volume 90.6 fL (80-100) Mean Corpuscular Hemoglobin 30.0 pg (25-34) Mean Corpuscular Hemoglobin Concent 33.1 g/dl (32-36) Platelet Count 257 K/uL (130-400) Mean Platelet Volume 10.8 fL (7.4-10.4) Neutrophils (%) (Auto) 68.3 % Lymphocytes (%) (Auto) 17.0 % Monocytes (%) (Auto) 8.8 % Eosinophils (%) (Auto) 4.9 % Basophils (%) (Auto) 0.7 % Neutrophils # (Auto) 6.54 K/uL (1.4-6.5) Lymphocytes # (Auto) 1.63 K/uL (1.2-3.4) Monocytes # (Auto) 0.84 K/uL (0.11-0.59) Eosinophils # (Auto) 0.47 K/uL (0-0.5) Basophils # (Auto) 0.07 K/uL (0-0.2) RDW Standard Deviation 49.5 fL (36.4-46.3) RDW Coefficient of Variation 14.8 % (11.5-14.5) Immature Granulocyte % (Auto) 0.3 % Immature Granulocyte # (Auto) 0.03 K/uL (0.00-0.02) Prothrombin Time 11.0 SECONDS (9.0-12.0) Prothromb Time International Ratio 1.0 (0.9-1.1) Activated Partial Thromboplast Time 26.1 SECONDS (21.0-31.0) Partial Thromboplastin Ratio 1.0 Anion Gap 5.0 mmol/L (3-11) Est Creatinine Clear Calc Drug Dose 58.5 ml/min Estimated GFR () 96.1 Estimated GFR (Non- 82.9 BUN/Creatinine Ratio 16.2 (10-20) Estimated Average Glucose 123 mg/dl Hemoglobin A1c 5.9 % (4.5-5.6) Calcium Level 7.6 mg/dl (8.5-10.1) Magnesium Level 2.0 mg/dl (1.8-2.4) Total Bilirubin 0.4 mg/dl (0.2-1) Direct Bilirubin < 0.1 mg/dl (0-0.2) Aspartate Amino Transf (AST/SGOT) 12 U/L (15-37) Alanine Aminotransferase (ALT/SGPT) 20 U/L (12-78) Alkaline Phosphatase 51 U/L (45-117) Troponin I < 0.015 ng/ml (0-0.045) Total Protein 6.7 gm/dl (6.4-8.2) Albumin 3.2 gm/dl (3.4-5.0) Thyroid Stimulating Hormone (TSH) 2.050 uIu/ml (0.300-4.500) Urine Color YELLOW Urine Appearance CLEAR (CLEAR) Urine pH 8.0 (4.5-7.5) Urine Specific [place] 1.009 (1.000-1.030) Urine Protein NEG (NEG) Urine Glucose (UA) NEG (NEG) Urine Ketones NEG (NEG) Urine Occult Blood NEG (NEG) Urine Nitrite NEG (NEG) Urine Bilirubin NEG (NEG) Urine Urobilinogen NEG (NEG) Urine Leukocyte Esterase TRACE (NEG) Urine WBC (Auto) 5-10 /hpf (0-5) Urine RBC (Auto) 0-4 /hpf (0-4) Urine Hyaline Casts (Auto) 0 /lpf (0-5) Urine Epithelial Cells (Auto) 10-20 /lpf (0-5) Urine Bacteria (Auto) NEG (NEG) Imaging As noted above in history of present illness Impression This is a 81-year-old female who presents with a episode of confusion and trouble getting her words out. She reports 2 additional episodes last 3 years the sound like they may have been stereotypical. Overall I'm suspicious that the patient could be having small left focal seizures in the left hemisphere. Plan I ordered an EEG this morning which showed mild left hemispheric slowing. While this is nonspecific, could be seen in the setting of postictal slowing after a seizure. Discussed with the patient about starting low-dose seizure medication. Patient is hesitant to do this at this time. Recommended following up in the neurology clinic in about one month for reevaluation, cognitive evaluation, and re- discussion about possible initiation of seizure medications. Thank you for allowing me to participate in this patient's care. If there is any questions or concerns, feel free to call/page me.
--- NOTE | 2017-04-21 16:54 | Discharge Instructions ---
Discharge Instructions Date of Service Apr 21, 2017. Admission Reason for Admission: Altered Mental Status, Memory Loss Discharge Discharge Diagnosis / Problem: Delirium, Seizure disorder Discharge Goals Goal(s): Increase independence Activity Recommendations Activity Limitations: resume your previous activity Lifting Limitations: none Exercise/Sports Limitations: none May Resume Sexual Activity: when tolerated Shower/Bathe: no limitations Driving or Machine Use: please review driving capacity with your primary care provider prior to driving . Instructions / Follow-Up Instructions / Follow-Up You were admitted to the hospital following and episode of acute confusion which was resolved at the time you were seen today. You were evaluated with laboratory studies which showed no anemia or electrolyte/liver/kidney abnormalities which would have caused your confusion. You were evaluated with imaging studies of your brain and neck which showed some atrophy (which is aging of the brain and chronic small blood vessel changes) and some hardening of the arteries which are not concerning. You were evaluated by neurology who performed a brain wave test on you and noted some slowing which could be concerning for seizures which, considering your history of similar complaints, might explain the episode you had. You declined medication at that time. On arrival, your blood pressure was somewhat elevated, but it improved following administration of your home medications. While here, physical and occupational therapy evaluated you and recommended you work with PT at home to improve your strength and ability to help yourself. It is encouraged that you not drive until a thorough medical evaluation has been completed as the risk of seizure and other changes to your mental status and attention might make driving an automobile a dangerous proposition for you. Please follow up with your primary care physician in the next 3-7 days ( Dr. Mcfarland has an appointment for you on April 27 () at 1:00pm), and with neurology in the next month. Current Hospital Diet Patient's current hospital diet: AHA Diet (Heart Healthy) Discharge Diet Recommended Diet: AHA Diet (Heart Healthy), Low Sodium Diet (2gm Na) Pending Studies Studies pending at discharge: no Laboratory Results Hemoglobin A1c Test 04/20/17 23:00 Range/Units Estimated Average Glucose 123 mg/dl Hemoglobin A1c 5.9 H 4.5-5.6 % Medical Emergencies . Who to Call and When: Medical Emergencies: If at any time you feel your situation is an emergency, please call 911 immediately. . Non-Emergent Contact Non-Emergency issues call your: Primary Care Provider Call Non-Emergent contact if: temperature is above 101.5, you have any medication questions . Past History Medical & Surgical History: (1) Esophageal Reflux (2) Hypertension Nos (3) Hypothyroidism Nos (4) Rheumatoid Arthritis . "Provider Documentation" section prepared by Joe Galvan. . Assistant Professor Of Mathematics Recommendations Assistant Professor Of Mathematics Recommendations: Neurological consultation with Dr. Lozano recommended seizure medication ( refused) and follow up in 1 month. VTE Core Measure Inpt VTE Proph given/why not?: Unfractionated heparin SQ
--- NOTE | 2017-04-21 20:10 | Discharge Summary ---
Discharge Summary Date of Service Apr 21, 2017. Discharge Summary Admission Date: Apr 21, 2017 at 00:53 Discharge Date: Apr 21, 2017 Discharge Disposition: Home with services Principal Diagnosis: Expressive aphasia Secondary Diagnoses/Problems: Hypertension Rheumatoid arthritis GERD Hypothyroidism Procedures: Electroencephalogram Admission Information HPI (per Admitting provider): 81 y/o F Hx RA, HTN, hypothyroid, lumbar stenosis, GERD. The pt presents following an acute episode of confusion which lasted for over one hour. She had spoken to her daughter on the phone and was said to exhibit difficulty forming sentences, memory impairment and disorientation. There was no reported slurring of speech. She denies any acute weakness, visual changes or loss of balance. Her symptoms have resolved at the time of evaluation. Physical Exam (per Admitting): General Appearance: WD/WN, no apparent distress Head: normocephalic Eyes: normal inspection ENT: normal ENT inspection, pharynx normal Neck: supple, no JVD Respiratory/Chest: chest non-tender, lungs clear, normal breath sounds Cardiovascular: regular rate, rhythm, no edema, no gallop Abdomen/GI: normal bowel sounds, non tender, soft Back: normal inspection, no CVA tenderness Extremities/Musculoskelatal: normal inspection, no calf tenderness Neurologic/Psych: classroom aide II-XII nml as tested, no motor/sensory deficits, alert , oriented x 3 Skin: normal color, warm/dry Hospital Course Mrs. Wang was at baseline per daughter and son at time of evaluation on the medical floors. She was awake, alert and oriented to person, place and time with details and minimal prompting. She was able to name 7 animals in 60 seconds and was unable to do a 5 minute recall of 3 words. As per the family's history, the patient exhibits decreased attention and a degree of word finding difficulty at baseline not dissimilar from complaint at admission. CV: S1/S2 nl RRR no MCG RESP: CTAB NEURO: CNII-XII grossly intact, 2+ patellar reflexes ABD: NT/ND BS nl Confusion and memory loss - evaluated by neurology on this admission w/ MRI brain, MRA head/neck with results as noted below. EEG showed concerns for slowing and pt was recommended prophylactic anti-seizure medication, which she refused, being concerned for sedation - it is notable that there appears to be an underlying progressive element of confusion here which could be dementia. Counseled family for close support and increased supervision especially with medication administration. - PT/OT recommended home therapy. Home health w/ point above. HTN - high normal range while inpatient, discharged on home regimen without change RA - continued prednisone dosing Hypothyroidism - continue levothyroxine GERD - continue PPI therapy MRI brain: Diffusion-weighted images show no evidence for an acute ischemic event. Considerable chronic small vessel change. Mild ventricular prominence in relation to the atrophy present raising the possibility of a component of normal pressure hydrocephalus. Sella and parasellar regions are unremarkable. The internal auditory canals within limitations of nonenhanced scan appear unremarkable. Semicircular canals appear symmetric. Globes are symmetric. IMPRESSION: 1. Mild atrophy. 2. Mild ventricular prominence somewhat out of proportion to the atrophy present raising the possibility of developing normal pressure hydrocephalus. 3. Moderate chronic small vessel change throughout both cerebral hemispheres. 4. No acute vascular insult. MRA Head IMPRESSION: Unremarkable MRA of the head without evidence of aneurysm, high-grade stenosis or proximal branch occlusion. MRA Neck IMPRESSION: 1. Atherosclerosis of the right carotid bulb without significant narrowing. 2. No evidence of a focal vessel occlusion, significant stenosis, or dissection. Total time spent on discharge = 50 This includes examination of the patient, discharge planning, medication reconciliation, and communication with other providers. Discharge Instructions See accompanying documents
[2017-04-21] MEDS ORDERED: NORTRIPTYLINE HCL 10 MG CAP PO SCH (21:00)
== END 2017-04-21 17:33 | disposition home health service (06) ==
LOC: EDBD 22:29 → C.EDA 22:30 → C.2T 04-21 00:53 → ENRESERV 04-21 01:58
PROVIDERS: ADMIT Internal Medicine; ATTEND Family Medicine
DX: F80.1 Expressive language disorder (principal); I10 Essential (primary) hypertension; M06.9 Rheumatoid arthritis, unspecified; K21.9 Gastro-esophageal reflux disease without esophagitis; E03.9 Hypothyroidism, unspecified; Z90.49 Acquired absence of other specified parts of digestive tract; Z80.9 Family history of malignant neoplasm, unspecified; Z79.82 Long term (current) use of aspirin; Z79.899 Other long term (current) drug therapy; Z91.040 Latex allergy status

== ENCOUNTER → 2017-06-15 | Outpatient (CLI) | payer BC ==
[~2017-06-15] MED LIST changes: -AMLO-110 PO; +ASPI-435 PO; +B COCAP10 PO; +CALC-342 PO; -CLTP PO; +FIBE1CHW PO; -HYDR-3126 PO; +HYDR12.55 PO; -PRD/1 PO; -TRAM-10 PO
== END | disposition home or self-care (01) ==
LOC: C.LAB1850 16:12
PROVIDERS: ATTEND Physician Assistant
DX: R26.9 Unspecified abnormalities of gait and mobility (principal); R41.3 Other amnesia